=== PATIENT | male | born 1985 ===

== ENCOUNTER 2021-01-14 19:08 | Emergency (ER) | payer OTHER ==
--- NOTE | 2021-01-14 19:41 | EDM.PDOC ---
ED HPI GENERAL MEDICAL PROBLEM - General Chief Complaint: Chest Pain Stated Complaint: CHEST TIGHTNESS Time Seen by Provider: 01/14/21 19:32 - History of Present Illness INITIAL COMMENTS - FREE TEXT/NARRATIVE: 35-year-old male presents the emergency room with fatigue and not feeling well. Blood pressure has been elevated. Patient did have Covid this last summer and patient just has not felt right since then. He has continued chest pressure and tightness but it seems to be worse this evening. Patient denies any fevers or chills no other problems. He states he has not been himself just has not had his normal energy. Chest Pain Score (Numeric/FACES): 4 - Related Data Allergies Allergy/AdvReac Type Severity Reaction Status Date / Time No Known Allergies Allergy Verified 01/14/21 19:19 Home Meds: Home Meds amLODIPine [Norvasc] 2.5 mg PO DAILY #15 tab 01/14/21 [Rx] Past Medical History Cardiovascular History: Reports: High Cholesterol Respiratory History: Reports: Asthma - Infectious Disease History Infectious Disease History: Reports: Novel Coronavirus Social & Family History - Tobacco Use Tobacco Use Status *Q: Never Tobacco User ED ROS GENERAL - Review of Systems Review Of Systems: See Below Constitutional: Reports: No Symptoms HEENT: Reports: No Symptoms Respiratory: Reports: No Symptoms Cardiovascular: Reports: Palpitations Endocrine: Reports: No Symptoms GI/Abdominal: Reports: No Symptoms : Reports: No Symptoms Musculoskeletal: Reports: No Symptoms ED EXAM, GENERAL - Physical Exam Exam: See Below Exam Limited By: No Limitations General Appearance: Alert, No Apparent Distress Head: Atraumatic, Normocephalic Neck: Normal Inspection, Supple, Non-Tender, Full Range of Motion Respiratory/Chest: No Respiratory Distress, Lungs Clear, Normal Breath Sounds Cardiovascular: Regular Rate, Rhythm, No Edema, No Murmur GI/Abdominal: Normal Bowel Sounds, Soft, Non-Tender #1 Interpretation EKG Date: 01/14/21 Rhythm: Other (Minimal sinus tachycardia) Rate (Beats/Min): 105 [place]: Normal P-Wave: Present QRS: Normal ST-T: Normal QT: Normal Comparison: NA - No Prior EKG EKG Interpretation Comments: Mild sinus tach otherwise normal EKG Course - Vital Signs Last Recorded V/S: Last Vital Signs Temp 36.7 C 09/21/21 19:15 Pulse 104 H 01/14/21 19:15 Resp 16 01/14/21 19:15 BP 196/107 H 01/14/21 19:15 Pulse Ox 98 01/14/21 19:15 - Orders/Labs/Meds Orders: Active Orders 24 hr Category Date Time Status Chest 1V Frontal [CR] Stat Exams 01/14/21 19:43 Taken UA RFX SARANYA AND CULT IF INDIC [URIN] Stat Lab 01/14/21 19:44 Ordered Labs: Laboratory Tests 01/14/21 01/14/21 01/14/21 Range/Units 19:50 19:50 19:50 D-Dimer, Quantitative < 0.19 L (0.19-0.50) mg/L Sodium 140 (136-145) mEq/L Potassium 3.5 (3.5-5.1) mEq/L Chloride 104 (98-107) mEq/L Carbon Dioxide 26 (21-32) mEq/L Anion Gap 13.5 (5-15) BUN 22 H (7-18) mg/dL Creatinine 1.5 H (0.7-1.3) mg/dL Est Cr Clr Drug Dosing 70.97 mL/min Estimated GFR (MDRD) 53 (>60) mL/min BUN/Creatinine Ratio 14.7 (14-18) Glucose 135 H (70-99) mg/dL Calcium 8.5 (8.5-10.1) mg/dL Magnesium 1.5 L (1.8-2.4) mg/dL Total Bilirubin 0.5 (0.2-1.0) mg/dL AST 29 (15-37) U/L ALT 50 (16-63) U/L Alkaline Phosphatase 76 (46-116) U/L Troponin I < 0.017 (0.00-0.056) ng/mL C-Reactive Protein 0.6 (<1.0) mg/dL NT-Pro-B Natriuret Pep 19 (0-125) pg/mL Total Protein 7.0 (6.4-8.2) g/dl Albumin 3.9 (3.4-5.0) g/dl Globulin 3.1 gm/dL Albumin/Globulin Ratio 1.3 (1-2) Meds: Medications Discontinued Medications Generic Name Dose Route Start Last Admin Trade Name Freq PRN Reason Stop Dose Admin Magnesium Oxide 800 mg 01/14/21 20:59 Magnesium Oxide 400 Mg Tab PO 01/14/21 21:00 ONETIME ONE - Re-Assessments/Exams Free Text/Narrative Re-Assessment/Exam: 01/14/21 21:12 X-ray looks good EKG except for some mild tachycardia is pretty normal. Troponin is negative D-dimer is normal C-reactive protein is normal. He did have Covid earlier this summer. He has some renal insufficiency and I did d iscuss this with the patient and his . I will go and start him on a gentle dose of Norvasc 2.5 mg daily. Departure - Departure Time of Disposition: 21:13 Disposition: Home, Self-Care 01 Clinical Impression: Hypertension - Discharge Information Referrals: Akua Maldonado [employer] [Primary Care Provider] - Forms: ED Department Discharge Additional Instructions: Return to the emergency room with any questions problems or worsening symptoms. Follow-up with your regular healthcare provider in 1 week for recheck your blood pressure. Start magnesium oxide 400 mg 1 daily if you develop diarrhea decrease it to 1 pill every other day. Sepsis Event Note (ED) - Evaluation Sepsis Screening Result: No Definite Risk - Focused Exam Vital Signs: Vital Signs Temp Pulse Resp BP Pulse Ox 01/14/21 19:15 36.7 C 104 H 16 196/107 H 98 - My Orders Last 24 Hours: My Active Orders 01/14/21 19:43 Chest 1V Frontal [CR] Stat 01/14/21 19:44 UA RFX SARANYA AND CULT IF INDIC [URIN] Stat - Assessment/Plan Last 24 Hours: My Active Orders 01/14/21 19:43 Chest 1V Frontal [CR] Stat 01/14/21 19:44 UA RFX SARANYA AND CULT IF INDIC [URIN] Stat
[2021-01-14] MEDS ORDERED: Magnesium Oxide 400 MG Tab PO ONE (20:59)
[2021-01-14] MEDS ORDERED: amLODIPine 5 MG Tab PO ONE (21:17)
--- NOTE | 2021-01-15 08:26 | CR ---
Chest: Portable view of the chest was obtained. Comparison: No prior chest imaging is available. Heart size and mediastinum are normal. Lungs are clear. Bony structures are unremarkable. Impression: 1. Nothing acute is seen on portable chest x-ray. Diagnostic code #1
== END 2021-01-14 21:42 | disposition home or self-care (01) ==
LOC: JD.ED 19:08
DX: I10 Essential (primary) hypertension (principal); E78.00 Pure hypercholesterolemia, unspecified; J45.909 Unspecified asthma, uncomplicated; Z86.16 Personal history of COVID-19
CPT/HCPCS: 36415; 71045; 80053; 83735; 83880; 84484; 85379; 86140; 93005; 99284; A9270; 93010; 99283